=== PATIENT | male | born 1970 | race Hispanic/Latino ===

== ENCOUNTER 2020-09-30 05:20 | Day surgery (SDC) | payer MEDICAID ==
--- NOTE | 2020-09-26 10:40 | Anesthesia Consultation ---
Anesthesia Consult and Med Hx Date of service: 09/30/20 - Airway Anesthetic Teeth Evaluation: Edentulous ROM Head & Neck: Adequate Mental/Hyoid Distance: Adequate Mallampati Class: Class I Intubation Access Assessment: Probably Good - Pulmonary Exam CTA: Yes - Cardiac Exam Cardiac Exam: RRR (mechanical click) - Pre-Operative Health Status ASA Pre-Surgery Classification: ASA3 Proposed Anesthetic Plan: MAC - Pulmonary Hx Smoking: Yes (quit 6 yrs ago) SOB: Yes (chronic; stable) Home Oxygen Therapy: No Hx Sleep Apnea: Yes (no CPAP) - Cardiovascular System Hx Hypertension: Yes Hx Heart Attack/AMI: No Hx Percutaneous Transluminal Coronary Angioplasty (PTCA): No Hx Cardia Arrhythmia: Yes (hx SVT s/p cardioversion 2017) Hx Pacemaker: No Hx Internal Defibrillator: No Hx Valvular Heart Disease: Yes (hx MVR 2017 on coumadin/ASA (see below)) - Central Nervous System CVA: No - Endocrine Hx Renal Disease: No Hx Insulin Dependent Diabetes: No Hx Non-Insulin Dependent Diabetes: No Hx Hypothyroidism: Yes - Other Systems Hx Obesity: Yes (BMI 38) - Additional Comments Anesthesia Medical History Comments: No hx anesthetic complications (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 Preop cardiology evaluation on chart: TTE 07/2019 EF 50-55%, ST 08/2020 no ischemia. Last dose coumadin/ASA 09/24/20. Lovenox bridge BID prescribed by job counselor. Patient instructed to use as prescribed w/ last dose 7/12 AM.
[2020-09-26 10:41] LABS: Calcium 9.5 mg/dL (8.4-10.2); Hematocrit 49.5 % (35.5-45.6); Hemoglobin 16.5 gm/dl (11.8-15.2); Mean Corpuscular HGB Conc 33 % (32-34); Mean Corpuscular Volume 90 fl (84-94); Platelet Count 169 K/mm3 (140-440); Red Blood Count 5.53 M/mm3 (3.65-5.03); Red Cell Distribution Width 13.9 % (13.2-15.2)
[2020-09-30] MEDS ORDERED: MIDAZOLAM 2 MG/2 ML INJ IV NR (06:00)
[2020-09-30] MEDS ORDERED: ACETAMINOPHEN 500 MG TAB PO SCH (06:00)
[2020-09-30] MEDS ORDERED: LACTATED RINGERS 1,000 ML IV SCH (06:00)
[2020-09-30] MEDS ORDERED: BACTERIOSTATIC SODIUM CHLORIDE 0.9% 30 ML VIAL INFILTRATI ONE (06:02)
[2020-09-30] MEDS ORDERED: BUPIVACAINE/PF (0.25%) 2.5 MG/ML 30 ML VIAL INFILTRATI ONE ×2 (07:00→08:12)
[2020-09-30] MEDS ORDERED: ceFAZolin/STERILE WATER 2 GM/20 ML SYRINGE IV NR (07:00)
[2020-09-30] MEDS ORDERED: LIDOCAINE (1%) 10 MG/1 ML VIAL 20 ML MDV ONE (07:00)
[2020-09-30] MEDS ORDERED: fentaNYL 100 MCG/2 ML INJ ONE (07:02)
[2020-09-30] MEDS ORDERED: propofoL 200 MG/20 ML VIAL IV ONE ×5 (07:02→07:56)
[2020-09-30] MEDS ORDERED: LIDOCAINE MPF (2%) 20 MG/1 ML VIAL 5 ML ONE (07:02)
--- NOTE | 2020-09-30 07:13 | Anesthesia Day of Surgery ---
Anesthesia Day of Surgery - Day of Surgery Patient Examined: Yes Patient H&P Reviewed: Yes Patient is NPO: Yes
[2020-09-30] MEDS ORDERED: HYDROmorphone 1 MG/1 ML INJ IV PRN ×2 (07:15)
[2020-09-30] MEDS ORDERED: ONDANSETRON 4 MG/2 ML INJ IV PRN (07:15)
[2020-09-30 07:16] LABS: INR 0.89 (0.87-1.13)
[2020-09-30 07:17] LABS: Partial Thromboplastin Time 39.2 Sec. (24.2-36.6)
[2020-09-30] MEDS ORDERED: KETAMINE/STERILE WATER 50 MG/ML SYRINGE ONE (07:37)
[2020-09-30] MEDS ORDERED: LIDOCAINE (1%) 10 MG/1 ML VIAL 20 ML MDV INFILTRATI ONE (08:12)
[2020-09-30] MEDS ORDERED: SODIUM CHLORIDE 0.9% IRR 1,500 ML BOTTLE IR ONE (08:13)
[2020-09-30] MEDS ORDERED: ePHEDrine SULFATE 50 MG/1 ML INJ ONE (08:26)
--- NOTE | 2020-09-30 08:56 | Short Stay Summary ---
Short Stay Documentation Date of service: 09/30/20 - History Principal diagnosis: cyst of right elbow H&P: obtained from office - Allergies and Medications Current Medications: Allergies No Known Allergies Allergy (Verified 09/24/20 15:40) Home Medications Medication Instructions Recorded Confirmed Last Taken Type Aspirin [Adult Aspirin] 81 mg PO DAILY 09/24/20 09/24/20 09/25/20 History AtorvaSTATin [Lipitor] 20 mg PO QHS 09/24/20 09/24/20 09/30/20 05:00 History Furosemide [Lasix] 40 mg PO PRN PRN 09/24/20 09/24/20 09/30/20 05:00 History Levothyroxine [Synthroid] 100 mcg PO QAM 09/24/20 09/30/20 09/30/20 05:00 History Losartan [Cozaar] 50 mg PO QDAY 09/24/20 09/24/20 09/30/20 05:00 History Naproxen [Naprosyn] 1,000 mg PO DAILY 09/24/20 09/24/20 09/25/20 History Warfarin [Coumadin] 5 mg PO QDAY 09/24/20 09/24/20 09/25/20 History sotaloL [Betapace] 80 mg PO BID 09/24/20 09/24/20 09/30/20 05:00 History Active Medications Acetaminophen (Acetaminophen 500 Mg Tab) 1,000 mg PO PREOP JARAD Last Admin: 09/30/20 06:38 Dose: 1,000 mg Documented by: Cefazolin Sodium (Cefazolin/Sterile Water 2 Gm/20 Ml Syringe) 2 gm IV PREOP NR Stop: 09/30/20 20:00 Hydromorphone HCl (Hydromorphone 1 Mg/1 Ml Inj) 0.25 mg IV Q10MIN PRN PRN Reason: Pain, Moderate (4-6) Stop: 09/30/20 23:00 Hydromorphone HCl (Hydromorphone 1 Mg/1 Ml Inj) 0.5 mg IV Q10MIN PRN PRN Reason: Pain , Severe (7-10) Stop: 09/30/20 23:00 Lactated Ringer's (Lactated Ringers) 1,000 mls @ 50 mls/hr IV DIRECT JARAD Stop: 09/30/20 23:59 Last Admin: 09/30/20 06:30 Dose: 50 mls/hr Documented by: Midazolam HCl (Midazolam 2 Mg/2 Ml Inj) 2 mg IV PREOP NR Stop: 09/30/20 23:59 Last Admin: 09/30/20 06:40 Dose: 2 mg Documented by: Ondansetron HCl (Ondansetron 4 Mg/2 Ml Inj) 4 mg IV ONCE PRN PRN Reason: Nausea And Vomiting Stop: 09/30/20 12:00 - Brief post op/procedure progress note Date of procedure: 09/30/20 Pre-op diagnosis: cyst of right elbow Post-op diagnosis: other (hemorrhagic cyst of right elbow) Procedure: excision of cyst of right elbow Anesthesia: MAC, local Findings: 5 cm hemorrhagic cyst of right elbow Surgeon: HEATHER KENNEDY Estimated blood loss: minimal Pathology: list (cyst of right elbow) Specimen disposition: to lab Condition: stable - Hospital course Hospital course: Pt observed in PACU and discharged to home in stable condition - Disposition Condition at discharge: Good Disposition: [id number] TO HOME OR SELFCARE Short Stay Discharge Plan Activity: other (avoid extreme bending at right elbow) Diet: regular Wound: per your surgeon's advice (Remove CELENA wrap in 2 days. May shower and wash area gently with soap and water. Pat dry and wrap gently with CELENA wrap. Wear CELENA every day for next 2 weeks.) Additional Instructions: Resume coumadin on 10/02/20 Follow up with: VIVI OLIVAS MD [Primary Care Provider] - 7 Days HEATHER KENNEDY DO [Staff Physician] - 14 Days Prescriptions: traMADoL [Ultram 50 MG tab] 50 mg PO Q6HR PRN #15 tablet PRN Reason: Pain , Severe (7-10)
[2020-09-30] MEDS ORDERED: oxyCODONE /ACETAMINOPHEN 5-325MG TAB ONE (09:48)
[2020-09-30 09:51] VITALS: BP 121/67
[2020-09-30] MEDS ORDERED: oxyCODONE /ACETAMINOPHEN 5-325MG TAB PO PRN (09:51)
--- NOTE | 2020-09-30 10:38 | Operative Report ---
Operative Report Operative Report: Date of procedure: 09/30/20 Pre-op diagnosis: cyst of right elbow Post-op diagnosis: other (hemorrhagic cyst of right elbow) Procedure: excision of cyst of right elbow Anesthesia: MAC, local Findings: 5 cm hemorrhagic cyst of right elbow Surgeon: HEATHER KENNEDY Estimated blood loss: minimal Pathology: list (cyst of right elbow) Specimen disposition: to lab Condition: stable - Hospital course Hospital course: Pt observed in PACU and discharged to home in stable condition HPI and indication: Patient is a 50-year-old male with a longstanding history of a right elbow mass. He had an ultrasound which showed a possible cystic lesion of the right elbow. 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 This was held appropr iately. All risks, benefits, alternatives to excision of the mass were discussed with the patient in the surgery clinic during this consultation. All questions were answered and consent obtained. Procedure in detail: The patient was identified in the preoperative area, taken back to the operating room and placed on the operating room table in supine position. After anesthesia was induced the right upper extremity was prepped and draped in the usual sterile fashion. The arm was draped over the patient's chest and the elbow flexed. A timeout was performed. Local anesthetic was infiltrated into the skin at the intended incision site. An incision was made using a 10 blade over the area of the mass along the axis of the arm. Dissection was carried down through the skin and subcutaneous tissue using electrocautery. The mass was under great tension and was located just below the skin. The mass was pierced and there was a large amount of dark, old bloody drainage expressed. The capsule was visible and appeared chronically thickened. The capsule was dissected from the skin and surrounding tissue circumferentially using a combination of sharp dissection with scissors near the area underlying the skin and electrocautery. Once the mass was circumferentially dissected it was measured at 5 cm and passed off the table as a specimen. The wound was irrigated, checked for hemostasis which was very carefully ensured. Krish powder was sprayed into the cavity to further ensure hemostasis. The wound was then closed in layered fashion. The deep layer was closed using interrupted 3-0 Vicryl sutures. The skin was approximated using 4-0 Monocryl subcuticular running stitch and skin glue. When the glue was dry a 4 x 4 gauze was applied to the area and wrapped with Billy wrap. Patient tolerated the procedure well. At the end of the case, all sponge, instrument, sharp counts were correct x2. The patient was awoken from anesthesia and taken to PACU in stable condition.
--- NOTE | 2020-09-30 16:36 | Post Anesthesia Evaluation ---
- Post Anesthesia Evaluation Patient Participated: Yes Airway Patent: Yes Stable Respiratory Function: Yes Nausea/Vomiting: No Temp > 96.8F: Yes Pain Manageable: Yes Adequeate Hydration: Yes Anesthesia Complications: No Block Receding Appropriately: Not Applicable Patient on Ventilator: No
== END 2020-09-30 05:21 | disposition home or self-care (01) ==
LOC: OR 05:20
PROVIDERS: ATTEND Surgery
DX: M79.89 Other specified soft tissue disorders (principal); M70.831 Other soft tissue disorders related to use, overuse and pressure, right forearm; M70.821 Other soft tissue disorders related to use, overuse and pressure, right upper arm; Z20.822 Contact with and (suspected) exposure to COVID-19; I11.0 Hypertensive heart disease with heart failure; I50.9 Heart failure, unspecified; G47.30 Sleep apnea, unspecified; E66.9 Obesity, unspecified; E03.9 Hypothyroidism, unspecified; Z98.890 Other specified postprocedural states; Z79.899 Other long term (current) drug therapy; Z79.82 Long term (current) use of aspirin; Z79.01 Long term (current) use of anticoagulants; Z87.891 Personal history of nicotine dependence; Z98.49 Cataract extraction status, unspecified eye; Z68.38 Body mass index [BMI] 38.0-38.9, adult; Z95.2 Presence of prosthetic heart valve
CPT/HCPCS: 11406; 12032; 36415; 80048; 85027; 85610; 85730; 88304; J0690; J2250; J2704; J3010; J3490; J7120; U0003